=== PATIENT | male | born 1955 | race Caucasian/White ===

== ENCOUNTER → 2024-11-30 09:54 | Outpatient (REF) | payer BC, SELFPAY | LOC: RAD 09:54 | PROVIDERS: ATTENDING PHYSICIAN Physician Assistant | DX: M79.671 Pain in right foot (principal); M79.672 Pain in left foot; M25.551 Pain in right hip | CPT/HCPCS: 73502; 73630 ==

== ENCOUNTER → 2025-02-26 13:38 | Outpatient (REF) | payer BC, SELFPAY | LOC: RAD 13:38 | PROVIDERS: ATTENDING PHYSICIAN Student in an Organized Health Care Education/Training Program; FAMILY PHYSICIAN Physician Assistant | DX: I87.2 Venous insufficiency (chronic) (peripheral) (principal) | CPT/HCPCS: 93970 ==